=== PATIENT | female | born 1935 | race African-American/Black ===

== ENCOUNTER 2017-09-20 23:00 | Observation (INO) | payer MEDICARE ==
[~2017-09-20] VITALS: Ht 172.7 cm; Wt 110.0 kg
[~2017-09-20 23:00] MED LIST: 1-ME1LIQ PO; ALPR-138 PO; ASPI81 PO; CARV12.52 PO; DIPH2%T PO; EPIP0.3I IM; ERYTOIN10 EACH EYE; GLIM4 PO; HYDR-2768 PO; HYDR25TA35 PO; ISOS30TA3 PO; LISI40TA PO; METF500 PO; MEVA40TA6 PO; POTA-243 PO; PRED10 PO; XALA0.00 EACH EYE
[2017-09-20 23:04] VITALS: BP 249/111; PULSE 81; RESP 20; TEMP 97.9; O2SAT 99
[2017-09-20 23:54] LABS: AUTOMATED NEUTROPHIL # 2.4 TH/MM3 (1.8-7.7); BASOPHIL # 0.1 TH/MM3 (0-0.2); BASOPHIL % 1.9 % (0.0-2.0); EOSINOPHIL # 0.2 TH/MM3 (0-0.4); EOSINOPHIL % 3.5 % (0.0-4.0); HEMATOCRIT 33.1 % (35.0-46.0); HEMO FLAGS DIFF FINAL; LYMPH % 44.4 % (9.0-44.0); LYMPHOCYTE # 2.7 TH/MM3 (1.0-4.8); MEAN CORPUSCULAR HEMOGLOBIN 29.2 PG (27.0-34.0); MEAN CORPUSCULAR HGB CONC 33.9 % (32.0-36.0); MONO % 9.6 % (0.0-8.0); NEUT % 40.6 % (16.0-70.0); PLATELET COUNT 173 TH/MM3 (150-450); RED BLOOD COUNT 3.85 MIL/MM3 (4.00-5.30); RED CELL DISTRIBUTION WIDTH 14.8 % (11.6-17.2)
[2017-09-21] VITALS (16 sets, daily range): BP systolic 136–232; BP diastolic 73–98; PULSE 53–73; RESP 16–20; TEMP 97.9–98.2; O2SAT 72–100
[2017-09-21] MEDS ORDERED: ASPIRIN 81 MG CHEW TAB CHEW ONE
[2017-09-21] MEDS: NITROGLYCERIN 0.4 MG SL 25 TABS/BTL SL PRN ×2 (00:04→00:14)
[2017-09-21 00:06] LABS: APTT (PATIENT) 26.6 SEC (24.3-30.1); INTERNATIONAL NORMALIZED RATIO 1.1 RATIO; PROTHROMBIN TIME - PATIENT 11.6 SEC (9.8-11.6)
--- NOTE | 2017-09-21 00:17 | PD ---
HPI Chief Complaint: Chest Pain Time Seen by Provider: 23:54 Travel History International Travel<30 days: No Contact w/Intl Traveler<30days: No Traveled to known affect area: No History of Present Illness HPI 81-year-old female presents to the emergency department for evaluation of left- sided chest pain radiating to the left shoulder since approximately 9:30 PM. Patient has taken no medications prior to arrival to the emergency department. Patient has history of hypertension and diabetes. Patient is a nonsmoker. Patient states that she is followed by Dr. bacon is her geophysical data technician because of her high blood pressure. Patient denies any known coronary vessel disease or dyslipidemia. Patient denies any known disease of the aorta. Patient states that her pain was 6/10 intensity and is currently 4/10 intensity. Patient had associated shortness of breath and mild nausea. Patient denies any nausea or shortness of breath this time. Patient did not experience any diaphoresis near- syncope or syncope. Patient states that she had a nuclear stress test February 2017 in preparation for ear surgery and reportedly this study was normal. Patient denies family history of premature onset cardiac disease. Patient is unable to identify exacerbating or alleviating factors. [facility] Past Medical History Narrative Medical Hypertension pulmonary hypertension diabetes congestive heart failure ear surgery eye surgery tonsillectomy hysterectomy: No tobacco use; nursing notes reviewed Heart Rhythm Problems: No Cardiac Catheterization: No Cardiovascular Problems: Yes High Cholesterol: Yes Congestive Heart Failure: Yes (HX OF CHF) Diabetes: Yes Patient Takes Glucophage: Yes Heparin Induced Thrombocytopen: No Hypertension: Yes Respiratory: No Menopausal: Yes Past Surgical History Coronary Artery Bypass Graft: No Ear Surgery: Yes Eye Surgery: Yes (Cataract) Hysterectomy: Yes Tonsillectomy: Yes (ADENOIDECTOMY) Family History Family Myocardial Infarction: Yes (father ) Social History Alcohol Use: No Tobacco Use: No Substance Use: No Allergies-Medications (Allergen,Severity, Reaction): Coded Allergies: sulfamethoxazole (Unverified Allergy, Severe, 05/22/17) 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 Hydrochlorothiazide 25 Mg Tab 25 Mg PO DAILY Hydralazine HCl 25 Mg Tablet 25 Mg PO BID Glimepiride 4 Mg Tab 4 Mg PO BIDAC Carvedilol 12.5 Mg Tab 12.5 Mg PO BID Aspirin Children's (Aspirin) 81 Mg Chew 81 Mg CHEW DAILY Xanax (Alprazolam) 0.25 Mg Tab 0.25 Mg PO BID PRN Review of Systems Except as stated in HPI: all other systems reviewed are Neg Physical Exam Narrative GENERAL: Well-developed well-nourished female in no acute distress no respiratory distress SKIN: Warm and dry. HEAD: Normocephalic. EYES: No scleral icterus. No injection or drainage. NECK: Supple, trachea midline. No JVD or lymphadenopathy. CARDIOVASCULAR: Regular rate and rhythm without murmurs, gallops, or rubs. RESPIRATORY: Breath sounds equal bilaterally. No accessory muscle use. GASTROINTESTINAL: Abdomen soft, non-tender, nondistended. MUSCULOSKELETAL: No cyanosis, or edema. Bilateral radial and dorsalis pedis pulses 2+ to palpation. BACK: Nontender without obvious deformity. No CVA tenderness. Data Data Last Documented VS Vital Signs Date Time Temp Pulse Resp B/P (MAP) Pulse Ox O2 Delivery O2 Flow Rate FiO2 09/21/17 01:51 65 16 173/74 (107) 99 Room Air 204/84 (124) 09/20/17 23:04 97.9 Orders Orders Electrocardiogram (09/20/17 23:38) Complete Blood Count With Diff (09/20/17 23:38) Basic Metabolic Panel (Bmp) (09/20/17 23:38) Ckmb (Isoenzyme) Profile (09/20/17 23:38) Troponin I (09/20/17 23:38) Chest, Single Ap (09/20/17 23:38) Iv Access Insert/Monitor (09/20/17 23:38) Ecg Monitoring (09/20/17 23:38) Oxygen Administration (09/20/17 23:38) Oximetry (09/20/17 23:38) Prothrombin Time / Inr (Pt) (09/20/17 23:38) Act Partial Throm Time (Ptt) (09/20/17 23:38) B-Type Natriuretic Peptide (09/20/17 23:45) Aspirin Chew (Aspirin Chew) (09/21/17 00:00) Nitroglycerin Sl (Nitrostat Sl) (09/21/17 00:00) CKMB (09/20/17 23:40) CKMB% (09/20/17 23:40) Nitroglycerin 2% Oint (Nitroglycerin 2% (09/21/17 01:45) Cta Thor Abd Aorta W Iv C W3d (09/21/17 01:51) Lorazepam (Ativan) (09/21/17 02:00) Iohexol 350 Inj (Omnipaque 350 Inj) (09/21/17 03:08) Troponin I (09/21/17 03:26) Ckmb (Isoenzyme) Profile (09/21/17 03:26) Electrocardiogram (09/21/17 ) Admit Order (Ed Use Only) (09/21/17 ) Comic Book Writer / Telemetry [email or web address].Q8H (09/21/17 03:27) Diet Heart Healthy (09/21/17 Breakfast) Activity Oob With Assistance (09/21/17 03:27) Notify Dr: Other (09/21/17 03:27) Activity Bed Rest With Brp (09/21/17 03:27) Vital Signs (Adult) Q4H (09/21/17 03:27) Cardiac Rhythm .As Directed (09/21/17 03:27) Notify Dr: Other .PRN (09/21/17 03:27) Notify DrVasyl Parameters (09/21/17 03:27) Resp Oxygen Nasal Cannula (09/21/17 ) Ckmb (Isoenzyme) Profile (09/21/17 03:27) Ckmb (Isoenzyme) Profile (09/21/17 06:27) Troponin I (09/21/17 03:27) Troponin I (09/21/17 06:27) Electrocardiogram (09/21/17 03:27) Electrocardiogram (09/21/17 06:27) ^ Obtain (09/21/17 03:27) Sodium Chloride 0.9% Flush (Ns Flush) (09/21/17 03:30) Sodium Chloride 0.9% Flush (Ns Flush) (09/21/17 09:00) Comic Book Writer / Telemetry MEGHANA.Q8H (09/21/17 03:27) Labs Laboratory Tests Test 09/20/17 23:40 White Blood Count 6.0 TH/MM3 Red Blood Count 3.85 MIL/MM3 Hemoglobin 11.2 GM/DL Hematocrit 33.1 % Mean Corpuscular Volume 86.0 FL Mean Corpuscular Hemoglobin 29.2 PG Mean Corpuscular Hemoglobin Concent 33.9 % Red Cell Distribution Width 14.8 % Platelet Count 173 TH/MM3 Mean Platelet Volume 9.8 FL Neutrophils (%) (Auto) 40.6 % Lymphocytes (%) (Auto) 44.4 % Monocytes (%) (Auto) 9.6 % Eosinophils (%) (Auto) 3.5 % Basophils (%) (Auto) 1.9 % Neutrophils # (Auto) 2.4 TH/MM3 Lymphocytes # (Auto) 2.7 TH/MM3 Monocytes # (Auto) 0.6 TH/MM3 Eosinophils # (Auto) 0.2 TH/MM3 Basophils # (Auto) 0.1 TH/MM3 CBC Comment DIFF FINAL Differential Comment Prothrombin Time 11.6 SEC Prothromb Time International Ratio 1.1 RATIO Activated Partial Thromboplast Time 26.6 SEC Blood Urea Nitrogen 24 MG/DL Creatinine 1.28 MG/DL Random Glucose 71 MG/DL Calcium Level 9.1 MG/DL Sodium Level 139 MEQ/L Potassium Level 5.0 MEQ/L Chloride Level 105 MEQ/L Carbon Dioxide Level 31.3 MEQ/L Anion Gap 3 MEQ/L Estimat Glomerular Filtration Rate 49 ML/MIN Total Creatine Kinase 156 U/L Creatine Kinase MB 1.2 NG/ML Troponin I LESS THAN 0.02 NG/ML B-Type Natriuretic Peptide 33 PG/ML MDM Medical Decision Making Medical Screen Exam Complete: Yes Emergency Medical Condition: Yes Medical Record Reviewed: Yes Interpretation(s) EKG: Normal sinus rhythm rate [address] elevation or injury pattern change noted age-indeterminate QS inferiorly poor R progression V3 V4 anteriorly age- indeterminate Last Impressions Aorta CTA 09/21/17 0151 Signed Impressions: Service Date/Time: Thursday, September 21, 2017 02:33 - CONCLUSION: 1. Thoracic and abdominal aorta normal diameter. No evidence of dissection. 2. Small pericardial effusion. 3. 3 cm thyroid nodule. 4. Fat-containing periumbilical hernia. Rai Muir MD Chest X-Ray 09/20/17 2338 Signed Impressions: Service Date/Time: September 23:48 - CONCLUSION: No acute cardiopulmonary disease identified. Rai Muir MD CBC & BMP Diagram 09/20/17 23:40 Calcium Level 9.1 Vital Signs Date Time Temp Pulse Resp B/P (MAP) Pulse Ox O2 Delivery O2 Flow Rate FiO2 09/21/17 01:51 65 16 173/74 (107) 99 Room Air 204/84 (124) 09/21/17 00:49 73 16 175/80 (111) 99 Room Air 09/21/17 00:16 69 16 176/83 (114) 96 Room Air 09/21/17 00:02 67 16 232/98 (142) 100 Room Air 09/20/17 23:04 97.9 81 20 249/111 (157) 99 Room Air EKG #2 normal sinus rhythm rate [address] elevation or injury pattern change poor R progression anteroseptally; QS inferiorly lead 3 Differential Diagnosis Chest pain ACS myocardial infarction aortic dissection and aortic aneurysm gastritis esophageal spasm choledocholithiasis pancreatitis Narrative Course Patient placed on court monitor with continuous pulse oximetry IV access obtained specimens collected and sent for resulting; EKG performed which reveals no acute injury pattern; patient administered aspirin 162 mg along with subungual nitroglycerin Diagnosis Primary Impression: Chest pain Qualified Codes: R07.2 - Precordial pain Additional Impressions: HTN (hypertension) Qualified Codes: I10 - Essential (primary) hypertension Pericardial effusion Andra Santiago MD Sep 21, 2017 00:17
--- NOTE | 2017-09-21 00:26 | RADRPT ---
EXAM DATE/TIME: 09/20/2017 23:48 [facility] COMPARISON: CHEST SINGLE AP, December 23, 2015, 12:30. INDICATIONS : Chest pain MEDICAL HISTORY : None. SURGICAL HISTORY : None. ENCOUNTER: Initial ACUITY: 1 day PAIN SCORE: 8/10 LOCATION: Bilateral chest FINDINGS: Single AP view of the chest. The lungs are clear. Cardiomediastinal silhouette within normal limits. No evidence of pleural effusion or pneumothorax. CONCLUSION: No acute cardiopulmonary disease identified. Rai Muir MD on September 21, 2017 at 0:24 Board Certified Radiologist. This report was verified electronically.
[2017-09-21 00:28] LABS: ANION GAP 3 MEQ/L (5-15); BICARBONATE 31.3 MEQ/L (21.0-32.0); BLOOD UREA NITROGEN 24 MG/DL (7-18); CHLORIDE 105 MEQ/L (98-107); GLOMERULAR FILTRATION RATE 49 ML/MIN (>89); SODIUM (NA) 139 MEQ/L (136-145)
[2017-09-21 00:31] LABS: CREATINE KINASE 156 U/L (26-192)
[2017-09-21 00:44] LABS: CKMB 1.2 NG/ML (0.5-3.6)
[2017-09-21] MEDS ORDERED: NITROGLYCERIN 2% OINT 1 GM PACKET TOPICAL ONE (01:45)
[2017-09-21] MEDS ORDERED: LORazepam 1 MG TAB PO ONE (02:00)
[2017-09-21] MEDS ORDERED: IOHEXOL 350 MG/ML 10 ML VIAL (for RAD DIAG) IVCONTRAST ONE (03:08)
--- NOTE | 2017-09-21 03:18 | RADRPT ---
EXAM DATE/TIME: 09/21/2017 02:33 [facility] COMPARISON: No previous studies available for comparison. INDICATIONS : Short of breath, chest pain. evaluate for aortic dissection IV CONTRAST: 100 cc Omnipaque 350 (iohexol) IV RADIATION DOSE: 12.44 CTDIvol (mGy) MEDICAL HISTORY : Diabetes mellitus type 2. Hypertension. Congestive heart failure. SURGICAL HISTORY : Hysterectomy. ENCOUNTER: Initial ACUITY: 1 day PAIN SCALE: 4/10 LOCATION: chest TECHNIQUE: Volumetric scanning was performed using a multi-row detector CT scanner. The data was post processed with a variety of visualization algorithms including full volume maximum intensity projection, multi -planar sliding thin slab reformation, curved planar reformation, and surface rendering techniques. Using automated exposure control and adjustment of the mA and/or kV according to patient size, radiat ion dose was kept as low as reasonably achievable to obtain optimal diagnostic quality images. DICOM format image data is available electronically for review and comparison. FINDINGS: LUNGS: Mild left lower lobe atelectasis. Lungs otherwise clear. MEDIASTINUM: No abnormally enlarged lymph nodes by CT criteria. No axillary or hilar abnormalities are identified. Cystic nodule in the left lobe of the thyroid anteriorly measuring 2.8 cm. Small pericardial effusio n. ABDOMEN: The liver and spleen are free of focal defects. The gallbladder and pancreas demonstrate no abnormali ty. The adrenal glands are normal. The kidneys demonstrate no evidence of solid renal mass or hydrone phrosis. No free fluid or abdominal masses are identified. No para-aortic adenopathy is seen. 3 cm fa t containing periumbilical hernia. PELVIS: No evidence of free fluid or pelvic mass. No abnormally enlarged inguinal or retroperitoneal lymph no lan are present. The bladder is unremarkable. THORACIC AORTA: The thoracic aortic root is normal with normal branching of the great vessels. There is no evidence of aneurysm or dissection. ABDOMINAL AORTA: The aorta is normal in caliber without aneurysm or dissection. The renal arteries are patent bilater ally. The proximal celiac and superior mesenteric arteries are patent and normal in diameter. PELVIC VESSELS: The internal iliac and external iliac vessels are patent without aneurysm or stenosis. CONCLUSION: 1. Thoracic and abdominal aorta normal diameter. No evidence of dissection. 2. Small pericardial effusion. 3. 3 cm thyroid nodule. 4. Fat-containing periumbilical hernia. Rai Muir MD on September 21, 2017 at 3:05 Board Certified Radiologist. This report was verified electronically.
[2017-09-21] MEDS ORDERED: SODIUM CHLORIDE 0.9% FLUSH 10 ML FLUSH IV FLUSH PRN (03:30)
[2017-09-21] MEDS ORDERED: ISOS20TA PO (03:48)
[2017-09-21] MEDS ORDERED: HYDR25TA5 PO (03:48)
[2017-09-21] MEDS ORDERED: ALPR.25 PO (03:48)
[2017-09-21] MEDS ORDERED: POTA10CA PO (03:48)
[2017-09-21] MEDS ORDERED: CARV12.52 PO (03:48)
[2017-09-21] MEDS ORDERED: LATA.005%O EACH EYE (03:48)
[2017-09-21] MEDS ORDERED: ASPI81CH7 CHEW (03:48)
[2017-09-21] MEDS ORDERED: GLIM4TAB PO (03:48)
[2017-09-21] MEDS ORDERED: LOVA40TA PO (03:48)
[2017-09-21] MEDS ORDERED: HYDR-3799 PO (03:48)
[2017-09-21] MEDS ORDERED: METF500T PO (03:48)
[2017-09-21] MEDS ORDERED: LISI40TA PO (03:48)
[2017-09-21] MEDS ORDERED: ENALAPRILAT 1.25 MG/ML VIAL IV PUSH ONE (04:30)
[2017-09-21 04:53] LABS: CREATINE KINASE 100 U/L (26-192)
[2017-09-21 07:03] LABS: CREATINE KINASE 91 U/L (26-192)
[2017-09-21] MEDS ORDERED: ONDANSETRON HCL 4 MG/2 ML VIAL IV PUSH PRN (07:30)
[2017-09-21] MEDS ORDERED: ACETAMINOPHEN 500 MG CPLT PO PRN (07:30)
--- NOTE | 2017-09-21 08:43 | HHI.HP ---
HPI Primary Care Physician Carlos Flanagan MD Chief Complaint Chest pain History of Present Illness 81 year old female with history of diabetes and hypertension presents to ER for further evaluation of chest pain. Onset 730pm. Characterized as pressure. Location midback with radiation to left anterior chest, left shoulder, and left upper arm. Duration waxed and waned intensity for 3 hours. Associated symptoms included nausea and dyspnea. Denied vomiting or diaphoresis. No known precipitating. Relieving factors states "all the medications they gave me in ER. " Reporting a gradual ease of pain. Endorses it hurt to take a deep breath. Currently chest pain-free. Has been chest pain free all evening. Endorses having similar pain in the past, follows with Dr. Pritchett. Review of Systems General: No fatigue,weakness, fever, chills, or recent illness change in appetite. Has been in her general state of health. HEENT: No MIRELES, no vision changes, no nasal congestion or drainage, no dysphasia CV: As stated above. Denies any current chest pain or discomfort. RESP: No SOB, cough, wheeze, or recent URI. GI: No nausea, vomiting, bowel changes, diarrhea, constipation, pain, distention , melena, or blood in the stool. No change in appetite, no unintentional weight gain or weight loss. : No dysuria, urgency, frequency EXT: No lower leg edema, no paraesthesias MS: No discomfort or change in ROM NEURO: No LOC, motor/sensory deficits PSYCH: No anxiety, depression, or situational stress SKIN: No rashes, no concerning lesions Past Family Social History Allergies: Coded Allergies: sulfamethoxazole (Unverified Allergy, Severe, 05/22/17) PT DX WITH IGNACIO LAYLA SYNDROME BY HER PCP trimethoprim (Unverified Allergy, Severe, 05/22/17) PT DX WITH IGNACIO LAYLA SYNDROME BY HER PCP Past Medical History Hypertension, type 2 diabetes, congestive heart failure, pulmonary hypertension Past Surgical History Hysterectomy, tonsillectomy Reported Medications Reported Meds & Active Scripts Active Reported Potassium Chloride ER (Potassium Chloride) 10 Meq Cap 10 Meq PO BID Metformin (Metformin HCl) 500 Mg Tab 500 Mg PO BIDPC Lovastatin 40 Mg Tab 40 Mg PO DAILY Lisinopril 40 Mg Tab 40 Mg PO DAILY Xalatan Opth Drops (Latanoprost) 0.005% Drops 1 Drop EACH EYE HS Isosorbide Mononitrate 20 Mg Tab 30 Mg PO DAILY Take 2 doses 7 hours apart.(SHE IS UNSURE IF SHE TAKES ISOSORBIDE) Hydrochlorothiazide 25 Mg Tab 25 Mg PO DAILY Hydralazine HCl 25 Mg Tablet 25 Mg PO BID Glimepiride 4 Mg Tab 4 Mg PO BIDAC Carvedilol 12.5 Mg Tab 12.5 Mg PO BID Aspirin Children's (Aspirin) 81 Mg Chew 81 Mg CHEW DAILY Xanax (Alprazolam) 0.25 Mg Tab 0.25 Mg PO BID PRN Active Ordered Medications Current Medications Medications (Trade) Dose Ordered Sig/Rajwinder Route Start Time Stop Time Status Last Admin (Nitrostat Sl) 0.4 mg Q5M PRN SL 09/21/17 00:00 09/21/17 00:14 (NS Flush) 2 ml UNSCH PRN IV FLUSH 09/21/17 03:30 (NS Flush) 2 ml BID IV FLUSH 09/21/17 09:00 (Tylenol) 500 mg Q4H PRN PO 09/21/17 07:30 (Zofran Inj) 4 mg Q6H PRN IV PUSH 09/21/17 07:30 (Aspirin) 325 mg DAILY PO 09/21/17 09:00 (Apresoline) 25 mg BID PO 09/21/17 09:00 (Hydrodiuril) 25 mg DAILY PO 09/21/17 09:00 (Prinivil) 40 mg DAILY PO 09/21/17 09:00 Family History Noncontributory for early onset cardiovascular disease. Father [place] age 64. 2 sisters [place] in their early 70s. Social History Known hypertension and diabetes. Appropriately taking statin therapy. No known coronary artery disease. Lifelong nonsmoker. Denies any alcohol use. Past cardiac testing February 2017 Lexiscan-reportedly unremarkable. 11/16/15 Lexiscan-1. Approximately 20% redistribution and inferolateral wall concerning for regional ischemia. 2. Intact wall motion EF 70%. Patient's cobbler upper Dr. Ignacio Pritchett. Physical Exam Vital Signs Vital Signs Date Time Temp Pulse Resp B/P (MAP) Pulse Ox O2 Delivery O2 Flow Rate FiO2 09/21/17 08:17 97.9 70 20 170/84 (112) 98 09/21/17 07:38 63 09/21/17 05:46 97.9 69 18 180/82 (114) 100 09/21/17 04:30 09/21/17 04:20 65 16 187/87 (120) 99 Room Air 09/21/17 03:52 53 16 136/73 (94) 99 Room Air 09/21/17 03:34 100 21 09/21/17 01:51 65 16 173/74 (107) 99 Room Air 204/84 (124) 09/21/17 00:49 73 16 175/80 (111) 99 Room Air 09/21/17 00:16 69 16 176/83 (114) 96 Room Air 09/21/17 00:02 67 16 232/98 (142) 100 Room Air 09/20/17 23:04 97.9 81 20 249/111 (157) 99 Room Air Physical Exam GENERAL: Alert WN, WD, NAD, pleasant, , obese female HEAD: NC, AT NECK: Supple, no masses, trachea midline CV: RRR, 2/6 systolic murmur, no rub, gallop, no JVD s1, s2. Chest wall tender with palpation in left anterior chest and substernally. RESP: Clear lungs throughout bilateral, no crackles, wheeze, rhonchi, symmetrical chest rise, nonlabored, able to speak in full sentences ABD: Soft, NT, ND, no masses, positive bowel tones, obese BACK: No scoliosis EXT: Pulses +24, no dependent edema MS: Normal tone 4 extremities, nontender, no obvious deformities, full range of motion NEURO: CN II through CN XII grossly intact, motor strength 5/5 PSYCH: A+O 3, pleasant affect, appropriate speech, mood, insight and judgment SKIN: Normal turgor, normal texture, no lesions, no rashes Laboratory Laboratory Tests Test 09/20/17 23:40 09/21/17 03:55 09/21/17 06:10 White Blood Count 6.0 Red Blood Count 3.85 Hemoglobin 11.2 Hematocrit 33.1 Mean Corpuscular Volume 86.0 Mean Corpuscular Hemoglobin 29.2 Mean Corpuscular Hemoglobin Concent 33.9 Red Cell Distribution Width 14.8 Platelet Count 173 Mean Platelet Volume 9.8 Neutrophils (%) (Auto) 40.6 Lymphocytes (%) (Auto) 44.4 Monocytes (%) (Auto) 9.6 Eosinophils (%) (Auto) 3.5 Basophils (%) (Auto) 1.9 Neutrophils # (Auto) 2.4 Lymphocytes # (Auto) 2.7 Monocytes # (Auto) 0.6 Eosinophils # (Auto) 0.2 Basophils # (Auto) 0.1 CBC Comment DIFF FINAL Differential Comment Prothrombin Time 11.6 Prothromb Time International Ratio 1.1 Activated Partial Thromboplast Time 26.6 Blood Urea Nitrogen 24 Creatinine 1.28 Random Glucose 71 Calcium Level 9.1 Sodium Level 139 Potassium Level 5.0 Chloride Level 105 Carbon Dioxide Level 31.3 Anion Gap 3 Estimat Glomerular Filtration Rate 49 Total Creatine Kinase 156 100 91 Creatine Kinase MB 1.2 Troponin I LESS THAN 0.02 LESS THAN 0.02 LESS THAN 0.02 B-Type Natriuretic Peptide 33 Result Diagram: 09/20/17 2340 09/20/172339 Imaging Last Impressions Aorta CTA 09/21/17 0151 Signed Impressions: Service Date/Time: Thursday, September 21, 2017 02:33 - CONCLUSION: 1. Thoracic and abdominal aorta normal diameter. No evidence of dissection. 2. Small pericardial effusion. 3. 3 cm thyroid nodule. 4. Fat-containing periumbilical hernia. Rai Muir MD Chest X-Ray 09/20/17 2338 Signed Impressions: Service Date/Time: September 23:48 - CONCLUSION: No acute cardiopulmonary disease identified. Rai Muir MD Course EKG NSR, normal axis, no st t segment changes Caprini VTE Risk Assessment Caprini VTE Risk Assessment: Mod/High Risk (score >= 2) Caprini Risk Assessment Model Point Value = 1 Point Value = 2 Point Value = 3 Point Value = 5 Age 41-60 Minor surgery BMI > 25 kg/m2 Swollen legs Varicose veins or History of unexplained or recurrent spontaneous Oral contraceptives or hormone replacement Sepsis (< 1 month) Serious lung disease, including pneumonia (< 1 month) Abnormal pulmonary function Acute myocardial infarction Congestive heart failure (< 1 month) History of inflammatory bowel disease Medical patient at bed rest Age 61-74 Arthroscopic surgery Major open surgery (> 45 min) Laparoscopic surgery (> 45 min) Malignancy Confined to bed (> 72 hours) Immobilizing plaster cast Central venous access Age >= 75 History of VTE Family history of VTE Factor V Leiden Prothrombin [id number] Lupus anticoagulant Anticardiolipin antibodies Elevated serum homocysteine Heparin-induced thrombocytopenia Other congenital or acquired thrombophilia Stroke (< 1 month) Elective arthroplasty Hip, pelvis, or leg fracture Acute spinal cord injury (< 1 month) Prophylaxis Regimen Total Risk Factor Score Risk Level Prophylaxis Regimen 0-1 Low Early ambulation 2 Moderate Order ONE of the following: *Sequential Compression Device (SCD) *Heparin 5000 units SQ BID 3-4 Higher Order ONE of the following medications: *Heparin 5000 units SQ TID *Enoxaparin/Lovenox 40 mg SQ daily (WT < 150 kg, CrCl > 30 mL/min) *Enoxaparin/Lovenox 30 mg SQ daily (WT < 150 kg, CrCl > 10-29 mL/min) *Enoxaparin/Lovenox 30 mg SQ BID (WT < 150 kg, CrCl > 30 mL/min) AND/OR *Sequential Compression Device (SCD) 5 or more Highest Order ONE of the following medications: *Heparin 5000 units SQ TID (Preferred with Epidurals) *Enoxaparin/Lovenox 40 mg SQ daily (WT < 150 kg, CrCl > 30 mL/min) *Enoxaparin/Lovenox 30 mg SQ daily (WT < 150 kg, CrCl > 10-29 mL/min) *Enoxaparin/Lovenox 30 mg SQ BID (WT < 150 kg, CrCl > 30 mL/min) AND *Sequential Compression Device (SCD) Assessment and Plan Assessment and Plan #1 Chest pain-admitted chest pain center. Ruled out with 3 sets of EKGs, cardiac enzymes, and monitored overnight. Will be seen and evaluated by Dr. Carmelo Lyn. Discussed likelihood of completed an additional chemical stress test. Further disposition to follow after assessment by cobbler upper. Patient agreeable to plan of care. #2 Hypertension-continue to monitor, initially severe hypertension on admission , improved overnight. Continue lisinopril, hydralazine, and carvedilol #3 Diabetes type II-continue oral anti-glycemic after nothing by mouth status lifted Dilma Monroy Sep 21, 2017 08:43
--- NOTE | 2017-09-21 08:43 | EKG ---
Date Performed: 09/21/2017 Time Performed: 03:52:38 PTAGE: 81 years EKG: Sinus rhythm POSSIBLE ANTERIOR MYOCARDIAL INFARCTION ABNORMAL ECG PREVIOUS TRACING : 09/20/2017 23.23 Since previous tracing, no significant change noted DOCTOR: Kwame Manley Interpretating Date/Time 09/21/2017 08:41:45
--- NOTE | 2017-09-21 08:44 | EKG ---
Date Performed: 09/20/2017 Time Performed: 23:23:29 PTAGE: 81 years EKG: Sinus rhythm POSSIBLE LEFT ATRIAL ENLARGEMENT POSSIBLE ANTERIOR MYOCARDIAL INFARCTION ABNORMAL ECG PREVIOUS TRACING : 12/23/2015 12.34 Since previous tracing, no significant change noted DOCTOR: Kwame Manley Interpretating Date/Time 09/21/2017 08:42:51
--- NOTE | 2017-09-21 08:58 | EKG ---
Date Performed: 09/21/2017 Time Performed: 07:13:05 PTAGE: 81 years EKG: Sinus rhythm POSSIBLE ANTERIOR MYOCARDIAL INFARCTION ABNORMAL ECG PREVIOUS TRACING : 09/21/2017 03.52 Since previous tracing, no significant change noted DOCTOR: Kwame Manley Interpretating Date/Time 09/21/2017 08:56:42
[2017-09-21] MEDS ORDERED: LISINOPRIL 20 MG TAB PO SCH (09:00)
[2017-09-21] MEDS ORDERED: SODIUM CHLORIDE 0.9% FLUSH 10 ML FLUSH IV FLUSH SCH (09:00)
[2017-09-21] MEDS ORDERED: HYDROCHLOROTHIAZIDE 25 MG TAB PO SCH (09:00)
[2017-09-21] MEDS ORDERED: ASPIRIN 325 MG TAB PO SCH (09:00)
[2017-09-21] MEDS ORDERED: hydrALAZINE HCL 25 MG TAB PO SCH (09:00)
[2017-09-21] MEDS ORDERED: cloNIDine HCL 0.1 MG TAB PO PRN (13:30)
[2017-09-21] MEDS ORDERED: CARVEDILOL 12.5 MG TAB PO SCH (14:45)
[2017-09-21] MEDS ORDERED: PRAVASTATIN SOD 40 MG TAB PO SCH (14:45)
[2017-09-21] MEDS ORDERED: LISINOPRIL 10 MG TAB PO ONE (16:15)
--- NOTE | 2017-09-21 16:54 | HHI.DCPOC ---
Discharge Care Plan Diagnosis: (1) Pulmonary hypertension (2) Atypical chest pain Goals to Promote Your Health * To prevent worsening of your condition and complications * To maintain your health at the optimal level Directions to Meet Your Goals Take your medications as prescribed Follow your dietary instruction Follow activity as directed Keep your appointments as scheduled Take your immunizations and boosters as scheduled If your symptoms worsen call your PCP, if no PCP go to Urgent Care Center or Emergency Room Smoking is Dangerous to Your Health. Avoid second hand smoke Call the 24-hour hour crisis hotline for domestic abuse at Dilma Monroy Sep 21, 2017 16:54
[2017-09-21] MEDS ORDERED: cloNIDine HCL 0.1 MG TAB PO ONE (18:00)
--- NOTE | 2017-09-22 16:00 | EKG ---
Date Performed: 09/21/2017 Time Performed: 10:21:23 PTAGE: 81 years EKG: Sinus rhythm POSSIBLE ANTERIOR MYOCARDIAL INFARCTION ABNORMAL ECG INTERPRETATION BASED ON A DEFAULT AGE OF 42 YEA RS NO SIG CHANGES PREVIOUS TRACING : 09/21/2017 07.13 DOCTOR: Carmelo Lyn Interpretating Date/Time 09/22/2017 16:00:18
== END 2017-09-22 00:34 | disposition home or self-care (01) ==
LOC: NEPC 23:00 → NEDA 09-21 03:29 → NEPFCDU 09-21 04:31
PROVIDERS: ADMIT Internal Medicine Cardiovascular Disease; ATTEND Internal Medicine Cardiovascular Disease
DX: R07.2 Precordial pain (principal); R06.02 Shortness of breath; I31.3 Pericardial effusion (noninflammatory); E04.1 Nontoxic single thyroid nodule; I27.20 Pulmonary hypertension, unspecified; R94.31 Abnormal electrocardiogram [ECG] [EKG]; I11.0 Hypertensive heart disease with heart failure; I50.9 Heart failure, unspecified; E11.9 Type 2 diabetes mellitus without complications; E78.00 Pure hypercholesterolemia, unspecified; R11.0 Nausea; R06.00 Dyspnea, unspecified; Z79.899 Other long term (current) drug therapy; Z79.82 Long term (current) use of aspirin
CPT/HCPCS: 71010; 71275; 74174; 80048; 82550; 82552; 83880; 84484; 85025; 85610; 85730; 93005; 96374; 99285; G0378; Q9967

== ENCOUNTER 2018-06-25 20:29 | Observation (INO) ==
[2018-06-25] MEDS ORDERED: hydrALAZINE HCl Inj 20 MG/ML Vial IV.PUSH ONE (21:31)
--- NOTE | 2018-06-25 22:01 | ED ---
HPI General Chief Complaint: Chest Pain Stated Complaint: HBP/ Time Seen by Provider: 06/25/18 21:19 Source: patient Mode of arrival: ambulatory Limitations: no limitations History of Present Illness HPI narrative: Patient is an 82-year-old female presented to emerge from for evaluation of chest pain and elevated blood pressure. Patient states that she noticed her blood pressure was high this morning, she reports compliance with her blood pressure medications. She states that she had thyroid testing done today at [facility] and has not felt well all day. She reports that she is not dizzy but feels off balance. The chest pain is in her left anterior chest wall , does not radiate anywhere. She states it is a 7 or 8 out of 10. Pain is not alleviated or exacerbated by anything. Patient denies any previous heart attack. Her past medical history is significant for type 2 diabetes, hypertension, hyperlipidemia, congestive heart failure. Patient states that she has taken 1 tablet of baby aspirin twice today thinking that would help her pain. She is supposed be on hydralazine 100 mg 3 times a day however she does not take it as prescribed. She states she took a half of the dose earlier today. She states she takes the whole dose than she is too sleepy. STEMI Alert: No Onset (ago): hour(s) Duration: constant Onset: during rest Pain location: left chest Severity: moderate Severity scale (1-10): 8 Quality: heaviness Pain radiation: none Relieving factors: nothing Exacerbating factors: nothing Related Data Home Medications Medication Instructions Recorded Confirmed acetaminophen [Tylenol Extra 500 mg PO Q6H PRN 06/25/18 06/25/18 Strength] glimepiride 4 mg PO QAM 06/25/18 06/25/18 hydralazine 1 mg/kg PO TID 06/25/18 06/25/18 hydrochlorothiazide 25 mg PO DAILY 06/25/18 06/25/18 ketotifen fumarate [Zaditor] 1 drp OPHTHALMIC (EYE) Q12H PRN 06/25/18 06/25/18 lisinopril 40 mg PO DAILY 06/25/18 06/25/18 lovastatin 40 mg PO DAILY 06/25/18 06/25/18 metformin 500 mg PO DAILY 06/25/18 06/25/18 potassium chloride 10 meq PO DAILY 06/25/18 06/25/18 timolol maleate 1 drp OPHTHALMIC (EYE) BID 06/25/18 06/25/18 Allergies Allergy/AdvReac Type Severity Reaction Status Date / Time sulfamethoxazole Allergy Severe Anemia Verified 06/25/18 22:19 trimethoprim Allergy Severe Anemia Verified 06/25/18 22:19 Review of Systems ROS: all other systems reviewed are negative PMFSH History History Provided By: Patient Medical History Medical History Diabetes type 2, controlled (Acute) CHF (congestive heart failure) (Acute) Hypertension (Acute) Bennett-Basil disease (Acute) Social History Social History Substance History: No History of Abuse Second Hand Smoke Exposure: No Smoking Status: Never smoker How Often Do You Have a Drink Containing Alcohol: Monthly or less Recent Travel in [facility] within the Last 8 Weeks: No Recent Out of Country Travel within the Last 8 Weeks: No Exam Narrative Exam Narrative: GENERAL: Overweight, well-developed, alert elderly - [place]og[place] female. Presenting in no acute distress. SKIN: Focused skin assessment warm/dry. HEAD: Atraumatic. Normocephalic. EYES: Pupils equal and round. No scleral icterus. No injection or drainage. ENT: No nasal bleeding or discharge. Mucous membranes pink and moist. NECK: Trachea midline. No JVD. CARDIOVASCULAR: Regular rate and rhythm. 2/6 systolic murmur murmur appreciated. RESPIRATORY: No accessory muscle use. Clear to auscultation. Breath sounds equal bilaterally. GASTROINTESTINAL: Abdomen soft, non-tender, nondistended. Hepatic and splenic margins not palpable. MUSCULOSKELETAL: No obvious deformities. No clubbing. No cyanosis. No edema. NEUROLOGICAL: Awake and alert. No obvious cranial nerve deficits. Motor grossly within normal limits. Normal speech. PSYCHIATRIC: Appropriate mood and affect; insight and judgment normal. Course Initial Documented Vital Signs Temperature 98.0 F 06/25/18 21:10 Pulse Rate 76 06/25/18 21:10 Respiratory Rate 16 06/25/18 21:10 Blood Pressure 216/117 H 06/25/18 21:10 Pulse Oximetry 98 06/25/18 21:10 Last Documented Vital Signs Temperature 98.0 F 06/25/18 21:10 Pulse Rate 63 06/26/18 01:12 Respiratory Rate 17 06/26/18 01:12 Blood Pressure 180/86 H 06/26/18 01:12 Pulse Oximetry 98 06/26/18 01:12 Medical Decision Making NEEL Attestation NEEL supervised visit: Yes Attestation: I, Dr. Guzman, have reviewed the advance practice practitioner's documentation and am in agreement, met with the patient face to face, made the diagnosis, and the medical decision making was done by me. *My assessment and Findings: Patient is an 82-year-old female, past medical history significant for diabetes, hypertension, CHF, who presents with complaint of chest pain. On arrival she was hypertensive and reported that she had not taken her nightly dose of 100 mg of hydralazine. This was given to her and her blood pressure responded. Pain was relieved after she received nitroglycerin. EKG did not show any acute ischemic changes and lab work was relatively unremarkable. She has been placed in the chest pain center for serial troponins and EKGs with possible stress test in the morning. MDM Narrative Medical decision making narrative: Patient is an 82-year-old female presented for evaluation of hypertension and chest pain. Patient is hypertensive on arrival, in room she is 229/98. Chest pain workup initiated. Patient will be given as nitro paste to her anterior chest wall. IV access established, patient was placed on telemetry monitoring continuous pulse oximetry. Medical Screen Exam Complete: Yes Emergency Medical Condition: Yes Differential Diagnosis Differential Diagnosis: Hypertensive urgency versus [place] versus ACS versus metabolic abnormality versus other Medical Records Medical records reviewed: Yes I reviewed the patient's medical records. Lab Data Lab results reviewed: Yes I reviewed the patient's lab results. Result diagrams: 06/25/18 22:13 06/25/18 22:13 Lab Results 06/25/18 06/25/18 06/25/18 Range/Units 22:13 22:13 22:13 WBC 5.4 (4.0-11.0) th/mm3 RBC 3.99 L (4.00-5.30) mil/mm3 Hgb 11.8 (11.6-15.3) gm/dL Hct 35.2 (35.0-46.0) % MCV 88.1 (80.0-100.0) fL MCH 29.4 (27.0-34.0) pg MCHC 33.4 (32.0-36.0) % RDW 14.1 (11.6-17.2) % Plt Count 144 L (150-450) th/mm3 MPV 9.7 (7.0-11.0) fL Neut % (Auto) 56.9 (16.0-70.0) % Lymph % (Auto) 30.8 (9.0-44.0) % [place] % (Auto) 10.5 H (0.0-8.0) % Eos % (Auto) 1.2 (0.0-4.0) % Baso % (Auto) 0.6 (0.0-2.0) % Neut # (Auto) 3.1 (1.8-7.7) th/mm3 Lymph # (Auto) 1.7 (1.0-4.8) th/mm3 [place] # (Auto) 0.6 (0.0-0.9) th/mm3 Eos # (Auto) 0.1 (0.0-0.4) th/mm3 Baso # (Auto) 0.0 (0.0-0.2) th/mm3 WBC Differential . Differential Comment Auto diff final PT 12.2 H (9.8-11.6) sec INR 1.2 Ratio APTT 26.7 (24.3-30.1) sec Sodium 144 (136-145) meq/L Potassium 3.9 (3.5-5.1) meq/L Chloride 107 (98-107) meq/L Carbon Dioxide 29.1 (21.0-32.0) meq/L Anion Gap 8 (5-15) meq/L BUN 21 H (7-18) mg/dL Creatinine 1.32 H (0.50-1.00) mg/dL Estimated GFR 47 L (>89) mL/min Random Glucose 157 H (74-106) mg/dL Calcium 9.0 (8.5-10.1) mg/dL Magnesium 1.9 (1.5-2.5) mg/dL Total Bilirubin 0.5 (0.2-1.0) mg/dL AST 25 (15-37) U/L ALT 29 (10-53) U/L Alkaline Phosphatase 56 (45-117) U/L Total Creatine Kinase 109 (26-192) U/L CK-MB (CK-2) 1.3 (0.5-3.6) ng/mL Troponin I Less than 0.02 L (0.02-0.05) ng/mL Total Protein 7.6 (6.4-8.2) g/dL Albumin 3.6 (3.4-5.0) g/dL Lipase 108 (73-393) U/L Urine Color (Yellw/Straw) Urine Clarity (Clear) Urine pH (5.0-8.5) Ur Specific [place] (1.002-1.035) Urine Protein (Neg-Trace) mg/dL Urine Glucose (UA) (Negative) mg/dL Urine Ketones (Negative) mg/dL Urine Occult Blood (Negative) Urine Nitrate (Negative) Urine Bilirubin (Negative) Urine Urobilinogen (Less than 2) mg/dL Ur Leukocyte Esterase (Negative) Urine RBC (0-3) /hpf Urine WBC (0-5) /hpf Ur Squamous Epith Cells (0-5) /hpf Urine Bacteria (None) /hpf Urine Mucus (Occasional) /lpf Micro UA Comment Ur Microscopic Review Urine Culture Comments 06/26/18 Range/Units 00:41 WBC (4.0-11.0) th/mm3 RBC (4.00-5.30) mil/mm3 Hgb (11.6-15.3) gm/dL Hct (35.0-46.0) % MCV (80.0-100.0) fL MCH (27.0-34.0) pg MCHC (32.0-36.0) % RDW (11.6-17.2) % Plt Count (150-450) th/mm3 MPV (7.0-11.0) fL Neut % (Auto) (16.0-70.0) % Lymph % (Auto) (9.0-44.0) % [place] % (Auto) (0.0-8.0) % Eos % (Auto) (0.0-4.0) % Baso % (Auto) (0.0-2.0) % Neut # (Auto) (1.8-7.7) th/mm3 Lymph # (Auto) (1.0-4.8) th/mm3 [place] # (Auto) (0.0-0.9) th/mm3 Eos # (Auto) (0.0-0.4) th/mm3 Baso # (Auto) (0.0-0.2) th/mm3 WBC Differential Differential Comment PT (9.8-11.6) sec INR Ratio APTT (24.3-30.1) sec Sodium (136-145) meq/L Potassium (3.5-5.1) meq/L Chloride (98-107) meq/L Carbon Dioxide (21.0-32.0) meq/L Anion Gap (5-15) meq/L BUN (7-18) mg/dL Creatinine (0.50-1.00) mg/dL Estimated GFR (>89) mL/min Random Glucose (74-106) mg/dL Calcium (8.5-10.1) mg/dL Magnesium (1.5-2.5) mg/dL Total Bilirubin (0.2-1.0) mg/dL AST (15-37) U/L ALT (10-53) U/L Alkaline Phosphatase (45-117) U/L Total Creatine Kinase (26-192) U/L CK-MB (CK-2) (0.5-3.6) ng/mL Troponin I (0.02-0.05) ng/mL Total Protein (6.4-8.2) g/dL Albumin (3.4-5.0) g/dL Lipase (73-393) U/L Urine Color Straw (Yellw/Straw) Urine Clarity Clear (Clear) Urine pH 6.0 (5.0-8.5) Ur Specific [place] 1.008 (1.002-1.035) Urine Protein Negative (Neg-Trace) mg/dL Urine Glucose (UA) Negative (Negative) mg/dL Urine Ketones Negative (Negative) mg/dL Urine Occult Blood Negative (Negative) Urine Nitrate Negative (Negative) Urine Bilirubin Negative (Negative) Urine Urobilinogen Less than 2 (Less than 2) mg/dL Ur Leukocyte Esterase Negative (Negative) Urine RBC Less than 1 (0-3) /hpf Urine WBC 1 (0-5) /hpf Ur Squamous Epith Cells <1 (0-5) /hpf Urine Bacteria Occasional H (None) /hpf Urine Mucus Few H (Occasional) /lpf Micro UA Comment Culture not ind Ur Microscopic Review Not Reportable Urine Culture Comments Culture not ind Imaging Data Attestation: I personally reviewed and interpreted this imaging study as follows : My impression: No acute cardiopulmonary process. Radiologist's impression: Chest X-Ray 06/25/18 21:20 CONCLUSION: No acute findings. ECG Data EKG Prior to Arrival: No Attestation: I personally reviewed and interpreted this ECG as follows: (Sinus rhythm at a rate of [address] or T-wave changes.) Discharge Plan Discharge Disposition Patient Disposition: 30 Still Patient Discharge Condition Condition: Stable Discharge Details Diagnosis: Chest pain, rule out acute myocardial infarction Physicians Team ED Provider: Lanny Guzman ED Midlevel Provider: Padmini Martinez Primary Care Provider: Carlos Vargas Rxs /Orders / Referrals /Forms Prescriptions: No Action ketotifen fumarate [Zaditor] 0.025 % (0.035 %) Drops 1 drp OPHTHALMIC (EYE) Q12H PRN (Reason: Eye Irritation) RF: 0 lovastatin 40 mg Tablet 40 mg PO DAILY RF: 0 potassium chloride 10 mEq Tablet Extended Release 10 meq PO DAILY RF: 0 acetaminophen [Tylenol Extra Strength] 500 mg Tablet 500 mg PO Q6H PRN (Reason: Pain) RF: 0 hydralazine 100 mg Tablet 1 mg/kg PO TID RF: 0 glimepiride 4 mg Tablet 4 mg PO QAM RF: 0 hydrochlorothiazide 25 mg Tablet 25 mg PO DAILY RF: 0 lisinopril 40 mg Tablet 40 mg PO DAILY RF: 0 metformin 500 mg Tablet Extended Release 24hr 500 mg PO DAILY RF: 0 timolol maleate 0.5 % Drops, Once Daily 1 drp OPHTHALMIC (EYE) BID RF: 0 Discharge Instructions Patient Printed Instructions: Chest Pain (ED) Status ED Status: With Doctor
[2018-06-25] MEDS ORDERED: Metoprolol Inj 5 MG/5 ML Vial IV.PUSH PRN (22:26)
--- NOTE | 2018-06-25 22:28 | XR ---
EXAM DATE: 06/25/2018 10:08 PM EDT AGE/SEX: 82 years / Female INDICATIONS: Chest pain and elevated blood pressure. CLINICAL DATA: This is the patient's initial encounter. Patient reports that signs and symptoms have been present for 1 day and indicates a pain score of 7/10. MEDICAL/SURGICAL HISTORY: . Diabetes mellitus type 2. Hypertension. Congestive heart failure H ysterectomy. COMPARISON: [facility] – [place], CHEST SINGLE AP, 09/20/2017. . FINDINGS: A single AP view of the chest demonstrates the lungs to be symmetrically aerated without evidence of mass, infiltrate or effusion. The cardiomediastinal contours are unremarkable. Osseous structures a re intact. CONCLUSION: No acute findings. Electronically signed by: Brant Becerra MD 06/25/2018 10:26 PM EDT
[2018-06-25 22:39] LABS: Baso % (Auto) 0.6 % (0.0-2.0); Eos # (Auto) 0.1 th/mm3 (0.0-0.4); Eos % (Auto) 1.2 % (0.0-4.0); Hematocrit 35.2 % (35.0-46.0); Hemoglobin 11.8 gm/dL (11.6-15.3); Lymph # (Auto) 1.7 th/mm3 (1.0-4.8); Lymph % (Auto) 30.8 % (9.0-44.0); Mean Corpuscular HGB Conc 33.4 % (32.0-36.0); Mean Corpuscular Hemoglobin 29.4 pg (27.0-34.0); Mean Corpuscular Volume 88.1 fL (80.0-100.0); Mean Platelet Volume 9.7 fL (7.0-11.0); Mono # (Auto) 0.6 th/mm3 (0.0-0.9); Mono % (Auto) 10.5 % (0.0-8.0); Neut # (Auto) 3.1 th/mm3 (1.8-7.7); Neut % (Auto) 56.9 % (16.0-70.0); Platelet Count 144 th/mm3 (150-450); Red Blood Count 3.99 mil/mm3 (4.00-5.30); Red Cell Distribution Width 14.1 % (11.6-17.2); White Blood Count 5.4 th/mm3 (4.0-11.0)
[2018-06-25 23:05] LABS: Alkaline Phosphatase 56 U/L (45-117); Creatine Kinase 109 U/L (26-192); Total Protein 7.6 g/dL (6.4-8.2)
[2018-06-25 23:06] LABS: Alanine Aminotransferase 29 U/L (10-53); Albumin 3.6 g/dL (3.4-5.0); Anion Gap 8 meq/L (5-15); Aspartate Aminotransferase 25 U/L (15-37); Blood Urea Nitrogen 21 mg/dL (7-18); Carbon Dioxide 29.1 meq/L (21.0-32.0); Chloride 107 meq/L (98-107); Glomerular Filtration Rate 47 mL/min (>89); Glucose,Random 157 mg/dL (74-106); Lipase 108 U/L (73-393); Magnesium 1.9 mg/dL (1.5-2.5); Potassium 3.9 meq/L (3.5-5.1); Sodium 144 meq/L (136-145)
[2018-06-25 23:10] LABS: Activated Partial Thrombo Time 26.7 sec (24.3-30.1); INR 1.2 Ratio; Prothrombin Time 12.2 sec (9.8-11.6)
[2018-06-25 23:17] LABS: Creatine Kinase MB 1.3 ng/mL (0.5-3.6)
[2018-06-25] MEDS ORDERED: Labetalol HCl Inj 100 MG/20 ML Vial IV.PUSH ONE (23:29)
[2018-06-26] MEDS ORDERED: Labetalol HCl Inj 100 MG/20 ML Vial IV.PUSH ONE (00:37)
[2018-06-26 00:59] LABS: Bacteria,Urine Occasional /hpf; Bilirubin,Urine Negative (Negative); Clarity,Urine Clear (Clear); Color,Urine Straw (Yellw/Straw); Glucose,Urine (UA) Negative (Negative); Leukocyte Esterase,Urine Negative (Negative); Mucus,Urine Few /lpf (Occasional); Nitrite,Urine Negative (Negative); Specific Gravity,Urine 1.008 (1.002-1.035); Squamous Epithelial Cell,Urine <1 /hpf (0-5)
[2018-06-26 02:29] LABS: Creatine Kinase 83 U/L (26-192)
[2018-06-26 05:01] LABS: Creatine Kinase 93 U/L (26-192)
--- NOTE | 2018-06-26 08:34 | P.HPCA ---
History of Present Illness Primary Care Physician: Carlos Yates Chief Complaint: Chest pain History of Present Illness: 82-year-old female with history of type 2 diabetes, hypertension, congestive heart failure, and hyperlipidemia presents emergency room for further evaluation of chest pressure and dizziness. Onset yesterday upon awakening. Location generalized chest area. Characterized as pressure. Associated symptoms included dizziness, mild shortness of breath, and nausea. Denied vomiting or diaphoresis. Duration lasted all day. She had an appointment at [place] for imaging of thyroid. When she returned home chest pressure continue therefore decided to come the ER for further evaluation. No precipitating or relieving factors. Endorses similar pain in the past. Follows with Dr. Pritchett. Reports normal Lexiscan earlier this year. No recent illness, fever, or chills. Has been in her general state of health. No known coronary artery disease. Endorses congestive heart failure diagnosed a few years ago, no recent exacerbations. Blood pressure normal well controlled on current medication regimen. Past cardiac testing Reports unremarkable Lexiscan October 2017, completed at Dr. Pritchett's office. 11/16/15 Lexiscan-Conclusion: 1. Approximately 20% redistribution in the inferolateral wall concerning for regional ischemia. 2. Otherwise, excellent wall motion throughout with estimated ejection fraction of 70%. Social history Lifelong non-smoker. Denies alcohol or recreational drug use. Ambulates independently. Remains active. - Diagnosis (1) Atypical chest pain (2) Hypertension (3) Diabetes Review of Systems All other systems reviewed negative except as stated in HPI PMFSH - History History Provided By: Patient - Medical History Medical History: Medical History (Last Updated 06/26/18 @ 11:19 by MELISSA Otero) Diabetes type 2, controlled (Acute) CHF (congestive heart failure) (Acute) Hypertension (Acute) Bennett-Basil disease (Acute) Hyperlipidemia - Surgical History Surgical History: Surgical History (Last Updated 06/26/18 @ 11:20 by MELISSA Otero) History of ear surgery - Social History I have reviewed the patient's Social History: Yes - Tobacco History Second Hand Smoke Exposure: No Tobacco Use In Past 30 Days: No Smoking Status: Never smoker - Alcohol History How Often Do You Have a Drink Containing Alcohol: Monthly or less - Substance Use History Substance History: No History of Abuse - Travel History Recent Travel in the [facility] Within the Last 8 Weeks: No Recent Travel Out of the Country Within the Last 8 Weeks: No - Immunization History Tetanus Immunization: <5 Years Hx Influenza Vaccine This Season: Yes Medications and Allergies Active Medications: Active Medications Sodium Chloride (Ns Flush) 2 ml IV.FLUSH UNSCH PRN PRN Reason: FLUSH AFTER USING IV ACCESS Sodium Chloride (Ns Flush) 2 ml IV.FLUSH BID TANYA Sodium Chloride (Ns Flush) 2 ml IV.FLUSH PRN PRN PRN Reason: FLUSH AFTER USING IV ACCESS Allergies Allergy/AdvReac Type Severity Reaction Status Date / Time sulfamethoxazole Allergy Severe Anemia Verified 06/25/18 22:19 trimethoprim Allergy Severe Anemia Verified 06/25/18 22:19 Home Medications Medication Instructions Recorded Confirmed Type acetaminophen [Tylenol Extra 500 mg PO Q6H PRN 06/25/18 06/25/18 History Strength] glimepiride 4 mg PO QAM 06/25/18 06/25/18 History hydralazine 1 tab PO TID 06/25/18 06/26/18 History hydrochlorothiazide 25 mg PO DAILY 06/25/18 06/25/18 History ketotifen fumarate [Zaditor] 1 drp OPHTHALMIC (EYE) Q12H PRN 06/25/18 06/25/18 History lisinopril 40 mg PO DAILY 06/25/18 06/25/18 History lovastatin 40 mg PO DAILY 06/25/18 06/25/18 History metformin 500 mg PO DAILY 06/25/18 06/25/18 History potassium chloride 10 meq PO DAILY 06/25/18 06/25/18 History timolol maleate 1 drp OPHTHALMIC (EYE) BID 06/25/18 06/25/18 History Exam Vital signs: Vital Signs 06/25/18 21:10 06/25/18 21:47 06/25/18 22:34 Temperature 98.0 F Pulse Rate 76 76 Respiratory Rate 16 18 Blood Pressure 216/117 H 216/117 H Pulse Oximetry 98 98 99 06/25/18 23:30 06/26/18 00:09 06/26/18 01:12 Temperature Pulse Rate 60 63 Respiratory Rate 17 Blood Pressure 232/102 H 220/102 H 180/86 H Pulse Oximetry 98 06/26/18 01:13 06/26/18 03:52 06/26/18 05:52 Temperature 98.3 F Pulse Rate 63 63 Respiratory Rate 17 16 Blood Pressure 228/96 H 196/84 H 182/72 H Pulse Oximetry 100 06/26/18 06:10 06/26/18 07:56 Temperature Pulse Rate 67 Respiratory Rate Blood Pressure Pulse Oximetry 100 Intake & Output 06/25/18 06/26/18 06/26/18 18:59 06:59 18:59 Weight 98.883 kg Other: # Voids 1 Weight On Admission 98.883 kg Narrative: GENERAL: Alert WN, WD, NAD, pleasant, obese, [place] female HEAD: NC, AT EYES: Sclera clear, conjunctiva without injection ENT: Mucous membranes pink and moist CV: RRR, 2/6 systolic murmur RESP: Clear lungs throughout bilateral, no crackles, wheeze, rhonchi, symmetrical chest rise, nonlabored, able to speak in full sentences ABD: Soft, NT, ND, no masses, positive bowel tones, obese EXT: Pulses +2x4, no dependent edema MS: Normal tone x4 extremities, nontender, no obvious deformities, full range of motion NEURO: CN II through CN XII grossly intact, motor strength 5/5 PSYCH: A+O x3, pleasant affect, appropriate speech, mood, insight and judgment SKIN: Normal turgor, normal texture, no lesions, no rashes Results 06/25/18 22:13 06/25/18 22:13 Cardiac Enzymes 06/25/18 06/26/18 06/26/18 Range/Units 22:13 02:05 04:30 AST 25 (15-37) U/L CK-MB (CK-2) 1.3 (0.5-3.6) ng/mL Troponin I Less than 0.02 L Less than 0.02 L Less than 0.02 L (0.02-0.05) ng/mL Coagulation 06/25/18 Range/Units 22:13 PT 12.2 H (9.8-11.6) sec APTT 26.7 (24.3-30.1) sec CBC 06/25/18 Range/Units 22:13 WBC 5.4 (4.0-11.0) th/mm3 RBC 3.99 L (4.00-5.30) mil/mm3 Hgb 11.8 (11.6-15.3) gm/dL Hct 35.2 (35.0-46.0) % Plt Count 144 L (150-450) th/mm3 Neut # (Auto) 3.1 (1.8-7.7) th/mm3 Lymph # (Auto) 1.7 (1.0-4.8) th/mm3 [place] # (Auto) 0.6 (0.0-0.9) th/mm3 Eos # (Auto) 0.1 (0.0-0.4) th/mm3 Baso # (Auto) 0.0 (0.0-0.2) th/mm3 Comprehensive Metabolic Panel 06/25/18 Range/Units 22:13 Sodium 144 (136-145) meq/L Potassium 3.9 (3.5-5.1) meq/L Chloride 107 (98-107) meq/L Carbon Dioxide 29.1 (21.0-32.0) meq/L BUN 21 H (7-18) mg/dL Creatinine 1.32 H (0.50-1.00) mg/dL Calcium 9.0 (8.5-10.1) mg/dL AST 25 (15-37) U/L ALT 29 (10-53) U/L Alkaline Phosphatase 56 (45-117) U/L Total Protein 7.6 (6.4-8.2) g/dL Albumin 3.6 (3.4-5.0) g/dL Intake and Output 06/25/18 06/26/18 06/26/18 22:59 06:59 14:59 Other: # Voids 1 Weight 98.883 kg 98.883 kg Weight On Admission 98.883 kg EKG interpretations - EKG EKG results cardiology: sinus rhythm, normal axis (NSR, nonspecific st change) Caprini VTE Risk Assessment Caprini VTE Risk Assessment: Moderate/High Risk (score >= 2) Caprini Risk Assessment Model: Point Value = 1 Point Value = 2 Point Value = 3 Point Value = 5 Age 41-60 Minor surgery BMI > 25 kg/m2 Swollen legs Varicose veins or History of unexplained or recurrent spontaneous Oral contraceptives or hormone replacement Sepsis (< 1 month) Serious lung disease, including pneumonia (< 1 month) Abnormal pulmonary function Acute myocardial infarction Congestive heart failure (< 1 month) History of inflammatory bowel disease Medical patient at bed rest Age 61-74 Arthroscopic surgery Major open surgery (> 45 min) Laparoscopic surgery (> 45 min) Malignancy Confined to bed (> 72 hours) Immobilizing plaster cast Central venous access Age >= 75 History of VTE Family history of VTE Factor V Leiden Prothrombin [id number] Lupus anticoagulant Anticardiolipin antibodies Elevated serum homocysteine Heparin-induced thrombocytopenia Other congenital or acquired thrombophilia Stroke (< 1 month) Elective arthroplasty Hip, pelvis, or leg fracture Acute spinal cord injury (< 1 month) Prophylaxis Regimen: Total Risk Factor Score Risk Level Prophylaxis Regimen 0-1 Low Early ambulation 2 Moderate Order ONE of the following: *Sequential Compression Device (SCD) *Heparin 5000 units SQ BID 3-4 Higher Order ONE of the following medications: *Heparin 5000 units SQ TID *Enoxaparin/Lovenox 40 mg SQ daily (WT < 150 kg, CrCl > 30 mL/min) *Enoxaparin/Lovenox 30 mg SQ daily (WT < 150 kg, CrCl > 10-29 mL/min) *Enoxaparin/Lovenox 30 mg SQ BID (WT < 150 kg, CrCl > 30 mL/min) AND/OR *Sequential Compression Device (SCD) 5 or more Highest Order ONE of the following medications: *Heparin 5000 units SQ TID (Preferred with Epidurals) *Enoxaparin/Lovenox 40 mg SQ daily (WT < 150 kg, CrCl > 30 mL/min) *Enoxaparin/Lovenox 30 mg SQ daily (WT < 150 kg, CrCl > 10-29 mL/min) *Enoxaparin/Lovenox 30 mg SQ BID (WT < 150 kg, CrCl > 30 mL/min) AND *Sequential Compression Device (SCD) Assessment and Plan - Assessment (1) Atypical chest pain Code(s): R07.89 - Other chest pain Status: Acute Plan: Admitted chest pain center. ACS ruled out 3 sets of EKGs and cardiac enzymes. Seen and evaluated by Dr. Kwame Manley. Proceed with Nadiya this a.m. If unremarkable, plans to discharge home with follow-up with her PCP and Dr. Pritchett. Patient agreeable to plan of care and verbalizes understanding. (2) Hypertension Code(s): I10 - Essential (primary) hypertension Status: Acute Plan: Continue hydralazine, hydrochlorothiazide, and lisinopril. Clonidine 0.1 mg every 6 hours as needed as needed for systolic blood pressure greater than 180. (3) Diabetes Code(s): E11.9 - Type 2 diabetes mellitus without complications Status: Chronic Plan: SSI low dose coverage. Hold anti-hyperglycemics. H&P: Quality - VTE Deep Vein Thrombosis/Pulmonary Embolism Present on Admission: No (2) Hypertension Qualifiers: Hypertension type: unspecified Qualified Code(s): I10 - Essential (primary) hypertension (3) Diabetes Qualifiers: Diabetes mellitus type: type 2 Diabetes mellitus long winder tender insulin use: without custodial use Diabetes mellitus complication status: with unspecified complications Qualified Code(s): E11.8 - Type 2 diabetes mellitus with unspecified complications
[2018-06-26] MEDS ORDERED: hydroCHLOROthiazide 25 MG Tablet PO SCH (09:00)
[2018-06-26] MEDS ORDERED: Lisinopril 20 MG Tablet PO SCH (09:00)
[2018-06-26] MEDS ORDERED: Aspirin 325 MG Tablet PO SCH (10:00)
[2018-06-26] MEDS ORDERED: Regadenoson Inj 0.4 MG/5 ML Syringe IV.PUSH ONE (10:42)
[2018-06-26] MEDS ORDERED: Timolol 0.5% Drops 5 ML Bottle EACH EYE SCH (11:00)
[2018-06-26] MEDS ORDERED: Olopatadine 0.1% Opth Drops 5 ML Bottle EACH EYE PRN (11:00)
[2018-06-26] MEDS ORDERED: Dextrose 50% in Water 50 ML Vial IV.PUSH PRN (11:26)
[2018-06-26] MEDS ORDERED: Insulin NovoLOG Aspart Correctional Sugar Inj SQ SCH (12:00)
[2018-06-26 12:31] VITALS: PULSE 82; RESP 20; TEMP 98.3; O2SAT 100
--- NOTE | 2018-06-26 12:36 | NM ---
EXAM DATE: 06/26/2018 12:30 PM EDT AGE/SEX: 82 years / Female INDICATIONS:Angina. . Chest pain. CLINICAL DATA: This is the patient's initial encounter. Patient reports that signs and symptoms have been present for 3 days and indicates a pain score of 3/10. MEDICAL/SURGICAL HISTORY: Diabetes mellitus type II. Hypertension. Bennett-Basil disease. N one. COMPARISON: [facility], MYOCARDIAL PERF PHARM SPECT, 11/16/2015. . DOSE: 8.7 mCi Tc 99m Myoview at rest 26.2 mCi [id number] at stress 0.4 mg Lexiscan STRESS SYMPTOMS: Short of breath. EJECTION FRACTION: 68 % TECHNIQUE: The patient underwent pharmacologic stress with infusion of prescribed dose. Continuous ECG tracing was monitored during stress. Gated SPECT imaging was performed after stress and conventi onal SPECT imaging was performed at rest. The examination was performed on a SPECT/CT scanner, both attenuation and non-corrected datasets were reviewed. FINDINGS: Distribution: The maximum perfused segment at stress is in the anterolateral wall. Perfusion Study: The pattern of perfusion at stress is within normal limits. Gated Study: There are intact wall motion and wall thickening without hypokinetic or dyskinetic segm ents. The ejection fraction is calculated at 68%. RISK CATEGORY: Low (<1% Annual Motality Rate) CONCLUSION: 1. No evidence of infarct or ischemia. Electronically signed by: Candelario Morgan MD 06/26/2018 12:34 PM EDT
--- NOTE | 2018-06-26 14:14 | ECG ---
Date Performed: 06/26/2018 Time Performed: 05:17:07 PTAGE: 82 years EKG: Sinus rhythm ABNORMAL ECG PREVIOUS TRACING : 06/26/2018 02.21 Since previous tracing, no significant change noted DOCTOR: Kwame Manley Interpretating Date/Time 06/26/2018 14:14:07
--- NOTE | 2018-06-26 14:15 | ECG ---
Date Performed: 06/26/2018 Time Performed: 02:21:10 PTAGE: 82 years EKG: Sinus rhythm ABNORMAL ECG PREVIOUS TRACING : 06/25/2018 21.43 Since previous tracing, no significant change noted DOCTOR: Kwame Manley Interpretating Date/Time 06/26/2018 14:14:48
--- NOTE | 2018-06-26 14:21 | ECG ---
Date Performed: 06/25/2018 Time Performed: 21:43:09 PTAGE: 82 years EKG: Sinus rhythm ABNORMAL ECG PREVIOUS TRACING : 06/25/2018 21.35 Since previous tracing, no significant change noted DOCTOR: Kwame Manley Interpretating Date/Time 06/26/2018 14:19:31
--- NOTE | 2018-06-26 14:24 | TR ---
Date Performed: 06/26/2018 Time Performed: 11:01:57 DOCTOR: Kwame Manley DRUG LIST: CLINICAL HISTORY: REASON FOR TEST: REASON FOR ENDING: OBSERVATION: CONCLUSION: COMMENTS: Lexiscan stress test was performed under standard four minute protocol. Radionuclide was injected one minute prior to ending the test. No electrocardiographic abormalities were present t o suggest ischemia. Nuclear imaging and interpretation are pending.
[2018-06-26 14:43] VITALS: BP 148/60
== END 2018-06-26 15:30 | disposition home or self-care (01) ==
LOC: NEPE 20:29 → NEDA 20:29 → NEPFCDU 06-26 02:44
PROVIDERS: ADMIT Internal Medicine Interventional Cardiology; ATTEND Internal Medicine Interventional Cardiology